=== PATIENT | female | born 1960 | race African-American/Black ===

== ENCOUNTER 2023-05-16 11:38 | Emergency (ER) | payer OTHER ==
[~2023-05-16] VITALS: Ht 170.2 cm; Wt 65.9 kg
[~2023-05-16 11:38] MED LIST: NOCURR
[2023-05-16 12:27] VITALS: BP 129/75; PULSE 99; RESP 14; TEMP 98.2
[2023-05-16] MEDS: LIDOCAINE 1% 10 ML VIAL SQ ONE (13:29)
[2023-05-16] MEDS: KETOROLAC TROMETHAMINE 60 MG/2 ML VIAL IM ONE (13:29)
[2023-05-16] MEDS: OxyCODONE HCL/ACETAMINOPHEN 5-325 MG TABLET PO ONE (13:30)
[2023-05-16] MEDS ORDERED: PERCT PO (13:58)
[2023-05-16] MEDS ORDERED: SULF-261 PO (13:58)
[2023-05-16] MEDS ORDERED: CEPH-558 PO (13:58)
== END 2023-05-16 14:16 | disposition home or self-care (01) ==
LOC: EMS 11:52
DX: L02.91 Cutaneous abscess, unspecified (principal); Z86.73 Personal history of transient ischemic attack (TIA), and cerebral infarction without residual deficits; Z88.0 Allergy status to penicillin
CPT/HCPCS: 99283; 10060; 96372; J1885; J3490

== ENCOUNTER 2024-06-25 02:32 | Emergency (ER) | payer OTHER ==
[~2024-06-25] VITALS: Ht 170.2 cm; Wt 66.8 kg
[~2024-06-25 02:32] MED LIST changes: +CEPH-558 PO; +PERCT PO; +SULF-261 PO
[2024-06-25] MEDS: DiphenhydrAMINE HCL 25 MG CAPSULE PO ONE (02:49)
[2024-06-25] MEDS: FAMOTIDINE 20 MG TABLET PO ONE (02:49)
[2024-06-25] MEDS ORDERED: ALBU18HF12 IH (07:08)
[2024-06-25] MEDS ORDERED: ZOLP-162 PO (07:08)
[2024-06-25] MEDS ORDERED: LISINOP/HCTZ PO (07:08)
[2024-06-25] MEDS ORDERED: CYCL10TA16 PO (07:08)
[2024-06-25] MEDS ORDERED: TRAM50TA5 PO (07:08)
[2024-06-25] MEDS: MethylPREDNISolone SOD SUCC 125 MG/2 ML VIAL IVP ONE (08:18)
[2024-06-25 09:56] VITALS: TEMP 98.1
[2024-06-25] MEDS ORDERED: PRED-554 PO (09:59)
[2024-06-25] MEDS ORDERED: LOSA-382 PO (09:59)
[2024-06-25] MEDS ORDERED: DIPH-1243 PO (09:59)
[2024-06-25 10:15] VITALS: BP 126/82; PULSE 80; RESP 18; O2SAT 95
== END 2024-06-25 10:19 | disposition home or self-care (01) ==
LOC: EMS 02:32
DX: T78.3XXA Angioneurotic edema, initial encounter (principal); F17.210 Nicotine dependence, cigarettes, uncomplicated; Z88.0 Allergy status to penicillin; Y99.8 Other external cause status
CPT/HCPCS: 99283; 96374; J2919

== ENCOUNTER 2024-11-26 08:21 | Emergency (ER) | payer OTHER ==
[~2024-11-26] VITALS: Ht 170.2 cm; Wt 71.4 kg
[~2024-11-26 08:21] MED LIST changes: +ALBU18HF12 IH; +CYCL10TA16 PO; +DIPH-1243 PO; +LISINOP/HCTZ PO; +LOSA-382 PO; +PRED-554 PO; +TRAM50TA5 PO; +ZOLP-162 PO
[2024-11-26 08:51] VITALS: BP 133/68; PULSE 78; RESP 18; TEMP 97.9; O2SAT 99
[2024-11-26] MEDS ORDERED: PRED-554 PO (11:07)
[2024-11-26] MEDS ORDERED: DOXY-354 PO (11:07)
== END 2024-11-26 11:18 | disposition home or self-care (01) ==
LOC: EMS 08:25
DX: K11.20 Sialoadenitis, unspecified (principal); T78.40XA Allergy, unspecified, initial encounter; F17.210 Nicotine dependence, cigarettes, uncomplicated; M06.9 Rheumatoid arthritis, unspecified; Z79.52 Long term (current) use of systemic steroids; Z79.899 Other long term (current) drug therapy; Z86.73 Personal history of transient ischemic attack (TIA), and cerebral infarction without residual deficits; Z88.0 Allergy status to penicillin; Y92.89 Other specified places as the place of occurrence of the external cause
CPT/HCPCS: 99283; J7512

== ENCOUNTER 2025-03-04 08:04 | Emergency (ER) | payer OTHER ==
[~2025-03-04] VITALS: Ht 170.2 cm; Wt 68.0 kg
[~2025-03-04 08:04] MED LIST changes: -DIPH-1243 PO; +DIPH-901 PO; +DOXY-354 PO; -SULF-261 PO; +SULF1TAB94 PO
[2025-03-04] MEDS: FAMOTIDINE 20 MG/2 ML VIAL IVP ONE (08:56)
[2025-03-04 10:21] VITALS: TEMP 98.6
[2025-03-04 10:32] VITALS: BP 136/72; PULSE 85; RESP 16; O2SAT 95
== END 2025-03-04 10:35 | disposition home or self-care (01) ==
LOC: EMS 08:04
DX: R22.0 Localized swelling, mass and lump, head (principal); T46.5X5A Adverse effect of other antihypertensive drugs, initial encounter; T44.7X5A Adverse effect of beta-adrenoreceptor antagonists, initial encounter; F17.210 Nicotine dependence, cigarettes, uncomplicated; M06.9 Rheumatoid arthritis, unspecified; Z86.73 Personal history of transient ischemic attack (TIA), and cerebral infarction without residual deficits; Z79.52 Long term (current) use of systemic steroids; Z79.899 Other long term (current) drug therapy; Z88.0 Allergy status to penicillin; Y92.89 Other specified places as the place of occurrence of the external cause
CPT/HCPCS: 99284; 96374; 96375; J2919; J1200; J3490